=== PATIENT | female | born 1965 | race Caucasian/White ===

== ENCOUNTER → 2019-07-02 11:00 | Outpatient (BNVA) | payer BC, SELFPAY | PROVIDERS: Family Provider Nurse Practitioner; PCP Nurse Practitioner; Visit Provider Nurse Practitioner Family | DX: R05 Cough (principal) | CPT/HCPCS: 87635 ==

== ENCOUNTER 2020-08-15 09:39 | Outpatient (CLI) | payer BC, SELFPAY ==
[2020-08-15] VITALS (8 sets, daily range): BP systolic 119–168; BP diastolic 80–104; PULSE 76–97; RESP 12–24; TEMP 36.9–37.2; O2SAT 94–97; BMI 50.4
--- NOTE | 2020-08-15 10:44 | W.ED.GENADLT ---
HPI - General Adult General: Source: patient Mode of arrival: ambulatory Limitations: no limitations History of Present Illness: HPI narrative: Patient here for Covid infusion. Patient with complaints of low-grade fever today, myalgias, mild headache and occasional cough. Patient diagnosed with Covid on Monday. She states she had the first [place] shot recently but has not had the second shot yet. Onset (ago): day(s) (3) Severity: mild Quality: aching Pain Consistency: constant Relieving factors: none Exacerbating factors: none Associated symptoms: Reports cough, fevers/chills, headache(s) and malaise; Deny chest pain, dyspnea, nausea, rash, palpitations or vomiting Review of Systems Const: Reports: fever(s), body aches and malaise Eyes: Denies: change in vision ENMT: Denies: throat pain Card: Denies: chest pain or palpitations Resp: Reports: non-productive cough; Denies: dyspnea or wheezing GI: Denies: abdominal pain, nausea or vomiting : Denies: flank pain Musc: Denies: neck pain or back pain Skin/Breast: Denies: rash or pruritus Neuro: Reports: headache(s); Denies: numbness in extremities Psych: Denies: anxiety Nabil/Lymph: Denies: enlarged lymph nodes Physical Exam Const: COMMON NORMALS: no acute distress, patient oriented x3, no limitations and well nourished GENERAL APPEARANCE: cooperative HENMT: COMMON NORMALS: normocephalic and atraumatic HEAD & SCALP: normocephalic and atraumatic FACE & SINUS: normal facial exam Eye: COMMON NORMALS: EOMs intact bilaterally Neck/C-Spine: COMMON NORMALS: full ROM, no lymphadenopathy, supple and no meningeal signs GENERAL: Yes normal visual inspection Lymph: LYMPHATIC: no lymphadenopathy noted Chest: COMMONS NORMALS: normal inspection of the chest and normal palpation of entire chest wall CHEST: No Ecchymosis present and No rash Resp: COMMON NORMALS: normal respiratory effort, No retractions, No use of accessory muscles and clear to auscultation bilaterally EFFORT & INSPECTION: No respiratory distress AUSCULTATION: clear to auscultation bilaterally Cardio: COMMON NORMALS: regular rate, regular rhythm and Peripheral pulses 2+ throughout JUGULAR VENOUS DISTENTION: no JVD RATE: regular rate RHYTHM: regular rhythm PERIPHERAL PULSES: Peripheral pulses 2+ throughout GI: COMMON NORMALS: Normal to inspection, nondistended, normoactive bowel sounds present and non-tender : COMMON NORMALS: Yes no CVA tenderness BLADDER/KIDNEY EXAM: Yes no CVA tenderness Back/Pelvis: COMMON NORMALS: no CVA tenderness Extremity: COMMON NORMALS: normal to inspection, full ROM and capillary refill normal Neuro: COMMON NORMALS: patient oriented x3, CN's II-XII intact bilaterally, no focal motor deficits and no sensory deficits noted MENINGEAL SIGNS: Yes no meningeal signs Psych: COMMON NORMALS: mental status grossly normal and Normal thought process present THOUGHT PROCESS: Normal thought process present Skin: COMMON NORMALS: no rashes or lesions noted and no wounds GENERAL SKIN EXAM: no rashes or lesions noted Course Vital Signs: Vital signs: Vital Signs Temperature 98.6 F 08/15/20 09:50 Pulse Rate 97 08/15/20 09:50 Respiratory Rate 20 H 08/15/20 09:50 Blood Pressure 168/104 08/15/20 09:50 Pulse Oximetry 95 08/15/20 09:50 MDM - General Adult MDM Narrative: Medical decision making narrative: Patient is a good candidate for Covid Bam infusion Discharge Plan Discharge Patient Disposition: Home Prescriptions: No Action hydrochlorothiazide 25 mg tablet PO DAILY RF: 0 metformin 500 mg tablet extended release 24 hr PO DAILY RF: 0 mupirocin 2 % ointment TOPICAL PRN (Reason: Rash) RF: 0 albuterol 2 puff inhalation PRN PRN (Reason: Sinus Symptoms) RF: 0 Discharge Orders: Discharge Order (Routine); Ordered 08/15/20 Ordered By: Khadar Chung Referrals: Bev Patel APN [Primary Care Provider] - Activity: Increase activity as tolerated Patient Instructions: Viral Syndrome - Adult Activity Restrictions/Additional Instructions: Return if any problems. Use albuterol inhaler as needed for cough or shortness of breath. Coding Level of Care Code ED Mixing Operator for Mohan Sanchez
--- NOTE | 2020-08-19 13:20 | DCPLANNER ---
clinical data manager had message that patient had received the BAM infusion. clinical data manager called and spoke with patient, she stated that she is doing pretty well. Patient stated that before the infusion that her chest and head congestion had increased, that she was running a high fever, and that she had a constant really bad headache. Patient stated that after the infusion that she has not had a fever, that everyonce in a while, she has a little headache but that it goes away. She stated that she is still weak and get tired easier, but overall she is feeling a lot better. She states that she is planning on going back to work.
== END 2020-08-15 12:51 | disposition home or self-care (01) ==
PROVIDERS: PCP Nurse Practitioner; Visit Provider Nurse Practitioner
DX: U07.1 COVID-19 (principal)
CPT/HCPCS: 96365

== ENCOUNTER 2020-09-29 09:50 | Outpatient (CLI) | payer BC, SELFPAY ==
--- NOTE | 2020-09-29 09:56 | MM_ITS ---
WS: [id number] BILATERAL DIGITAL SCREENING MAMMOGRAPHY WITH CAD CLINICAL INFORMATION: SCREENING HISTORY: Screening mammogram. No current complaints. COMPARISON: June 23, 2014 TECHNIQUE: Bilateral CC and MLO views. FINDINGS: Left breast is smaller compared to the right. This is unchanged from previous. The breasts are composed of heterogeneous fibroglandular density tissue, which can limit the detectio n of small underlying mass lesions. Biopsy clip left breast. A few punctate and lucent centered calci fications. Punctate calcifications upper outer left breast were previously biopsied. New calcificatio ns in this area adjacent to the biopsy cavity. Recommend spot magnification views for further evaluat ion. MM/[place] [id number] IMPRESSION: BI-RADS: 0-Incomplete: Need additional imaging evaluation FOLLOW UP: Need Additional Imaging New punctate calcifications adjacent to the prior biopsy cavity left breast. RECOMMEND LEFT BREAST DIAGNOSTIC MAMMOGRAPHY SPOT MAGNIFICATION VIEWS FOR FURTH ER EVALUATION.
== END 2020-09-29 09:51 | disposition home or self-care (01) ==
LOC: RADSHAW 09:55
PROVIDERS: PCP Nurse Practitioner; Visit Provider Nurse Practitioner
DX: Z12.31 Encounter for screening mammogram for malignant neoplasm of breast (principal)
CPT/HCPCS: 77067

== ENCOUNTER 2020-10-05 07:44 | Outpatient (CLI) | payer BC, SELFPAY ==
--- NOTE | 2020-10-05 07:48 | MM_ITS ---
WS: [id number] LEFT DIGITAL MAMMOGRAPHY WITH CAD CLINICAL INFORMATION: ABNORMAL MAMMOGRAM COMPARISON: September 29, 2020 TECHNIQUE: 3 views of the left breast were obtained. FINDINGS: The left breast is composed of scattered heterogeneous fibroglandular densities. Again seen are the n ew calcifications adjacent to the biopsy cavity. Small clusters of calcification with a punctate appe arance. A few amorphous calcifications. Considering prior biopsy was benign, recommend 6 month follow -up spot magnification views. MM/[place] [id number] IMPRESSION: BI-RADS: 3-Probably Benign FOLLOW UP: 6 Month Follow-up RECOMMEND 6 MONTH FOLLOW-UP LEFT BREAST DIAGNOSTIC MAMMOGRAPHY WITH SPOT MAGNIF ICATION VIEWS.
== END 2020-10-05 07:45 | disposition home or self-care (01) ==
LOC: RADSHAW 07:46
PROVIDERS: PCP Nurse Practitioner; Visit Provider Nurse Practitioner
DX: R92.1 Mammographic calcification found on diagnostic imaging of breast (principal)
CPT/HCPCS: 77065

== ENCOUNTER 2023-05-10 07:39 | Outpatient (CLI) | payer BC, SELFPAY ==
--- NOTE | 2023-05-10 07:47 | CT_ITS ---
WS: [id number] LDCT LUNG CANCER SCREENING TECHNIQUE: Noncontrast CT of the chest with coronal and sagittal reformatted images. CLINICAL INFORMATION: NICOTINE DEPENDENCE COMPARISON: None. DLP: 112.20 mGy.cm DIvol: Mean CTDIvol: 3.00 (mGy) All CT scans at [facility] use at least one of these dose optimization techniques: automat ed exposure control; mA and/or kV adjustment per patient size (includes targeted exams where dose is matched to clinical indication); or iterative reconstruction. FINDINGS: No suspicious pulmonary parenchymal abnormalities. Lungs are well aerated. Normal caliber thoracic aorta. Aortic calcification. Coronary calcification. No mediastinal or hilar lymphadenopathy. Normal GE junction. No axillary lymphadenopathy. Small RIGHT adrenal adenoma. Slight thickening LEFT adrenal gland. Hepatomegaly. A few low-attenuatio n lesions RIGHT hepatic lobe likely hepatic cyst. Moderate thoracic kyphosis. Hypertrophic changes thoracic spine. IMPRESSION: CT/CT lung screening [id number] LUNG-RADS: 1-Negative FOLLOW UP: 12 Month: Continue annual screening with LDCT
--- NOTE | 2023-05-10 08:13 | MM_ITS ---
WS: [id number] BILATERAL SCREENING DIGITAL TOMOSYNTHESIS MAMMOGRAM WITH CAD HISTORY: SCREENING COMPARISON: 10/05/2020, 09/29/2020 and 06/23/2014 Bilateral CC and MLO views with tomosynthesis and synthetic mammography submitted. Computer aided det ection analyzed. Breast composition: There are scattered areas of fibroglandular density. No suspicious masses, microc alcifications or architectural distortion. Numerous benign calcifications in each breast. IMPRESSION: MM/[place] [id number] BI-RADS: 2-Benign FOLLOW UP: 1 Year Follow-up
== END 2023-05-10 07:40 | disposition home or self-care (01) ==
LOC: RAD 07:39
PROVIDERS: PCP Nurse Practitioner; Visit Provider Nurse Practitioner Family
DX: Z12.31 Encounter for screening mammogram for malignant neoplasm of breast (principal); Z12.2 Encounter for screening for malignant neoplasm of respiratory organs; Z87.891 Personal history of nicotine dependence
CPT/HCPCS: 71271; 77063; 77067

== ENCOUNTER 2024-01-04 14:23 | Emergency (ER) | payer BC, SELFPAY ==
--- NOTE | 2024-01-04 14:26 | XR_ITS ---
WS: [id number] Exam: XR chest 1V portable [id number] Date/Time of Exam: 01/04/2024 2:26 PM Reason For Exam: cp Comparison 06/30/2017. Lungs are fully expanded and clear. Normal cardiomediastinal silhouette for technique. No pleural eff usions. Unremarkable bony structures. XR/XR chest 1V portable [id number] IMPRESSION: 1. Negative chest.
--- NOTE | 2024-01-04 14:29 | ECG_ITS ---
[facility] Test Date: 2024-01-04 Pat Name: Dorothy Brower Department: Room: Gender: Female Director Business Systems: : 1965 Requested By: Adriel Dial Order Number: [id number] Banuelos MD: Clayton Garza M.D. Measurements Intervals [place] Rate: 76 P: 29 [place]: 170 QRS: 21 QRSD: 158 T: 8 QT: 396 QTc: 447 Interpretive Statements SINUS RHYTHM INDETERMINATE AXIS RIGHT BUNDLE BRANCH BLOCK [120+ ms QRS DURATION, UPRIGHT V1, 40+ ms S IN I/aVL/V4/V5/V6] No previous ECG available for comparison Electronically Signed On 01-06-2024 10:29:17 WEB CONTENT DIRECTOR by Clayton Garza M.D. [email or web address]
[2024-01-04 14:35] VITALS: BP 176/81; PULSE 82; TEMP 36.7; O2SAT 97; BMI 49.6
[2024-01-04 14:48] LABS: Basophils % 0.3 %; Eosinophils % 0.1 %; Lymphocytes # 1.8 10^3/uL (0.8-4.8); Lymphocytes % 13.4 %; Mean Corpuscular HGB Conc 33.7 g/dL (30-55); Mean Corpuscular Hemoglobin 29.2 pg (27-33); Mean Corpuscular Volume 86.6 fl (85-98); Mean Platelet Volume 9.9 fL (7.4-10.4); Monocytes # 0.4 10^3/uL (0.2-0.9); Monocytes % 2.9 %; Neutrophils # 11.29 10^3/uL (1.8-7.7); Neutrophils % 82.5 %; Nucleated Red Blood Cells % 0 %; Platelet Count 347 10^3/cmm (157-399); Red Blood Count 5.31 10^6/uL (3.85-5.65); Red Cell Distribution Width 12.9 % (12.1-15.1); White Blood Count 13.67 10^3/uL (3.29-11.43)
[2024-01-04 15:18] LABS: Alanine Aminotransferase 15 U/L (0-33); Albumin Level 4.1 g/dL (3.5-5.2); Alkaline Phosphatase 120 U/L (35-105); Anion Gap 17.1 (5-19); Aspartate Amino Transferase 14 U/L (0-32); Blood Urea Nitrogen 11 mg/dL (8-23); Calcium 9.6 mg/dL (8.5-10.5); Carbon Dioxide 24 mmol/L (22-29); Chloride 97 mmol/L (98-107); Creatinine Clr Calc Pharmacy 120.2561; Globulin 3.4 g/dL (1.3-4.6); Glucose 405 mg/dL (65-115); Lipase 26 U/L (13-60); Osmolality Calculated 294 mOsm/kg (285-295); Potassium 4.1 mmol/L (3.5-5.1); Sodium 134 mmol/L (136-145); Total Bilirubin 0.3 mg/dL (0.15-1.2); Total Protein 7.5 g/dL (6.6-8.7)
[2024-01-04 15:24] LABS: Troponin(5th) Baseline 7 ng/L (0-10)
--- NOTE | 2024-01-04 16:04 | W.ED.URI ---
HPI - URI/Sore Throat General: Chief Complaint: Upper Respiratory Infection Stated Complaint: chest pain, lower back spams Time Seen by Provider: 01/04/24 15:44 Source: patient Mode of arrival: ambulatory Limitations: no limitations History of Present Illness: 58yo female presents with friend for evaluation of midsternal chest discomfort that started when she was coughing this morning at around 10 AM as well as low back spasms with coughing when she is sitting against an object such as a chair. Patient reports she was seen at a local clinic 2 days ago where she was diagnosed with bronchitis. She was given an injection of Solu-Medrol and has been on doxycycline, prednisone, Flonase, cetirizine, and albuterol inhaler since. Patient reports that the midsternal chest discomfort started when she was coughing, but it did not resolve. States that the spasms started approximately 30 minutes later only with coughing. She does report she has a history of high blood pressure and diabetes that she does not take her prescribed medications for. She is prescribed hydrochlorothiazide as well as metformin and Ozempic. Patient denies difficulty breathing, shortness of breath, vomiting, diarrhea, any other concerns at this time. Associated symptoms: Reports chest pain (midsternal, onset with cough); Deny chills, fever(s) or vomiting Related Data Home Medications Medication Instructions Recorded Confirmed hydrochlorothiazide 25 mg tablet 25 mg PO DAILY 08/15/20 01/04/24 metformin 500 mg tablet,extended 500 mg PO DAILY 08/15/20 01/04/24 release 24 hr albuterol sulfate 90 mcg/actuation 2 puff inhalation .Q4-6H 01/04/24 01/04/24 aerosol inhaler benzonatate 100 mg capsule 200 mg PO TID 01/04/24 01/04/24 doxycycline hyclate 100 mg capsule 100 mg PO BID 01/04/24 01/04/24 fluconazole 150 mg tablet 150 mg PO Q7D 01/04/24 01/04/24 prednisone 20 mg tablet 20 mg PO BID 01/04/24 01/04/24 Previous Rx's Medication Instructions Recorded tizanidine 2 mg tablet 2 mg PO Q8H PRN muscle spasticity 01/04/24 #20 tabs Allergies Allergy/AdvReac Type Severity Reaction Status Date / Time Sulfa (Sulfonamide Allergy ALGY-Hives Verified 01/04/24 14:38 Antibiotics) Review of Systems Const: Denies: fever(s) or chills Card: Reports: chest pain (midsternal, onset with cough); Denies: palpitations, irregular heart rhythm or syncope Resp: Reports: non-productive cough and chest congestion; Denies: dyspnea, productive cough or wheezing GI: Denies: vomiting Musc: Reports: back pain (low back spasms) Skin/Breast: Denies: erythema Physical Exam Const: COMMON NORMALS: no acute distress and patient oriented x3 GENERAL APPEARANCE: cooperative OTHER: Patient is sitting upright on the side of the stretcher in no acute distress. She is able to give history with no difficulty. She is interactive with exam appropriately. Family is at bedside HENMT: COMMON NORMALS: normocephalic and external ears normal HEAD & SCALP: normocephalic FACE & SINUS: normal facial exam EXTERNAL EAR: Yes external ears normal Eye: GENERAL EYE: appearance normal, both eyes and all related structures Neck/C-Spine: COMMON NORMALS: full ROM Chest: CHEST: Yes Symmetrical chest wall rise Resp: COMMON NORMALS: normal respiratory effort and clear to auscultation bilaterally EFFORT & INSPECTION: Yes able to speak in complete sentences AUSCULTATION: clear to auscultation bilaterally OTHER: Nonproductive cough noted throughout exam Cardio: COMMON NORMALS: regular rate and regular rhythm RATE: regular rate RHYTHM: regular rhythm : COMMON NORMALS: No no CVA tenderness BLADDER/KIDNEY EXAM: No no CVA tenderness Back/Pelvis: COMMON NORMALS: negative for no CVA tenderness LUMBAR SPINE/LOWER BACK: Yes normal to inspection and No lumbar spinal tenderness Extremity: COMMON NORMALS: full ROM Neuro: COMMON NORMALS: patient oriented x3 Psych: COMMON NORMALS: cooperative Course Vital Signs: Vital signs: Vital Signs Temperature 98.0 F 01/04/24 14:35 Pulse Rate 69 01/04/24 17:00 Blood Pressure 170/94 01/04/24 17:00 Pulse Oximetry 94 01/04/24 17:00 Oxygen Delivery Me thod Room Air 01/04/24 17:00 MDM - URI/Sore Throat Medical Decision Making 58yo female with a known history of HTN, DM, and currently beign treated for bronchitis with Solumedrol (2 days ago), prednisone, doxycycline, fluticasone, cetirizine, and albuterol inhaler. Patient did have an onset of substernal chest pain while she was coughing this morning at around 10:00. States that it did not resolve when her coughing stopped. She then started having low back spasms with coughing starting at 1030 this morning. She did contact her primary care who recommended she come to the emergency department for further evaluation. Patient does report that she is not compliant with her daily medications for hypertension (hydrochlorothiazide) as well as for her diabetes (metformin and Ozempic). Patient denies difficulty breathing, shortness of breath, vomiting, abdominal pain, any other concern at this time. Patient is nontoxic in appearance. Vital signs are stable. Differential diagnoses include but are not limited to: Upper respiratory infection, bronchitis, acute PA, pleurisy, muscle spasms Labs, imaging, and EKG obtained while awaiting room placement. EKG does show sinus rhythm with a right bundle branch block, no previous for comparison. No acute abnormalities noted on the chest x-ray. Mild leukocytosis with a white blood cell count of 13.67, this may be elevated related to her known infection but also her recent steroid use. Sodium is mildly decreased at 134, but corrected sodium for hyperglycemia is noted to be 141. Glucose is noted to be 405, likely related to patient's current use of steroids and noncompliance with medications. Baseline troponin is noted to be 7, 2-hour troponin is noted to be 6 with no change in 2h EKG (SR with RBBB, rate 66). Discussed these findings with patient and family. Advised that we would begin a mild muscle relaxer for the back spasms. Reiterated to patient the importance of taking her prescribed medications. Recommend she follow-up with primary care within the next week for her blood pressure, hyperglycemia (likely worsened by steroid use), and for an ER follow-up. Advised return to the emergency department with any rapid worsening symptoms, difficulty breathing, shortness of breath, persistent chest pain, and as needed. Patient states understanding and has no further questions or concerns at this time. Medical Records I reviewed the patient's medical records. Lab Data I reviewed the patient's lab results. 01/04/24 14:40 01/04/24 14:40 Radiology Impressions Chest X-Ray 01/04/24 14:26 IMPRESSION: 1. Negative chest. Laboratory Results WBC 13.67 10^3/uL (3.29-11.43) H 01/04/24 14:40 RBC 5.31 10^6/uL (3.85-5.65) 01/04/24 14:40 Hgb 15.50 g/dL (11.27-16.99) 01/04/24 14:40 Hct 46.0 % (36-47) 01/04/24 14:40 MCV 86.6 fl (85-98) 01/04/24 14:40 MCH 29.2 pg (27-33) 01/04/24 14:40 MCHC 33.7 g/dL (30-55) 01/04/24 14:40 RDW 12.9 % (12.1-15.1) 01/04/24 14:40 Plt Count 347 10^3/cmm (157-399) 01/04/24 14:40 MPV 9.9 fL (7.4-10.4) 01/04/24 14:40 Neut % (Auto) 82.5 % 01/04/24 14:40 Lymph % (Auto) 13.4 % 01/04/24 14:40 [place] % (Auto) 2.9 % 01/04/24 14:40 Eos % (Auto) 0.1 % 01/04/24 14:40 Baso % (Auto) 0.3 % 01/04/24 14:40 Neut # (Auto) 11.29 10^3/uL (1.8-7.7) H 01/04/24 14:40 Lymph # (Auto) 1.8 10^3/uL (0.8-4.8) 01/04/24 14:40 [place] # (Auto) 0.4 10^3/uL (0.2-0.9) 01/04/24 14:40 Eos # (Auto) 0.0 10^3/uL (0.0-0.8) 01/04/24 14:40 Baso # (Auto) 0.0 10^3/uL (0.0-0.1) 01/04/24 14:40 Nucleated RBC % (auto) 0 % 01/04/24 14:40 Nucleated RBCs # 0.0 /100WBC 01/04/24 14:40 Sodium 134 mmol/L (136-145) L 01/04/24 14:40 Potassium 4.1 mmol/L (3.5-5.1) 01/04/24 14:40 Chloride 97 mmol/L (98-107) L 01/04/24 14:40 Carbon Dioxide 24 mmol/L (22-29) 01/04/24 14:40 Anion Gap 17.1 (5-19) 01/04/24 14:40 BUN 11 mg/dL (8-23) 01/04/24 14:40 Creatinine 0.6 mg/dL (0.5-0.9) 01/04/24 14:40 GFR Calculation 102.0 mL/min (90-130) 01/04/24 14:40 Glucose 405 mg/dL (65-115) H 01/04/24 14:40 Calculated Osmolality 294 mOsm/kg (285-295) 01/04/24 14:40 Calcium 9.6 mg/dL (8.5-10.5) 01/04/24 14:40 Total Bilirubin 0.3 mg/dL (0.15-1.2) 01/04/24 14:40 AST 14 U/L (0-32) 01/04/24 14:40 ALT 15 U/L (0-33) 01/04/24 14:40 Alkaline Phosphatase 120 U/L (35-105) H 01/04/24 14:40 Troponin T Baseline 7 ng/L (0-10) 01/04/24 14:40 Troponin T 120 Minute 6.00 ng/L (0-10) 01/04/24 16:32 Delta Troponin T -1.00 ABS# (0-10) L 01/04/24 16:32 Total Protein 7.5 g/dL (6.6-8.7) 01/04/24 14:40 Albumin 4.1 g/dL (3.5-5.2) 01/04/24 14:40 Globulin 3.4 g/dL (1.3-4.6) 01/04/24 14:40 Lipase 26 U/L (13-60) 01/04/24 14:40 All radiology interpretation(s) finalized by discharge Discharge Plan Discharge Patient Disposition: Home Clinical Impression: Bronchitis, Muscle spasm of back Condition: Stable Prescriptions: New tizanidine 2 mg tablet 2 mg PO Q8H PRN (Reason: muscle spasticity) Qty: 20 0RF No Action hydrochlorothiazide 25 mg tablet 25 mg PO DAILY metformin 500 mg tablet extended release 24 hr 500 mg PO DAILY doxycycline hyclate 100 mg capsule 100 mg PO BID fluconazole 150 mg tablet 150 mg PO Q7D prednisone 20 mg tablet 20 mg PO BID benzonatate 100 mg capsule 200 mg PO TID albuterol sulfate 90 mcg/actuation HFA aerosol inhaler 2 puff INHALATION .Q4-6H Discharge Orders: Discharge ED (Routine); Ordered 01/04/24 Ordered By: Alex Lawson Referrals: Bev Patel APN [Primary Care Provider] - Discharge Diet: Usual diet Discharge Activity: Resume usual activity Patient Instructions: Muscle Spasm (ED), Pain Management Activity Restrictions/Additional Instructions: Your heart labs were noted to be in the normal range. The chest discomfort is not likely to be related to heart damage at this time Your elevated glucose is likely related to your use of steroids for your respiratory infection. Please monitor your glucose closely. Tizanidine has been sent to your pharmacy for the muscle spasms. Please do not drive or operate heavy machinery while taking this medication Follow-up with primary care within the next week for recheck of your blood pressure, glucose, and ER follow-up. Follow-up sooner if needed Return to the emergency department as any rapid worsening symptoms, difficulty breathing, shortness of breath, sustained chest pain, and as needed. Stand Alone Forms: Work/School Release Coding Level of Care Code ED Welfare Eligibility Worker for Mohan Sanchez
[2024-01-04 16:16] VITALS: BP 170/100
[2024-01-04 16:30] VITALS: BP 178/98; PULSE 71; O2SAT 95
--- NOTE | 2024-01-04 16:44 | ECG_ITS ---
[id number] [facility] Pat Name: Dorothy Brower Department: Room: Gender: Female Special Client Bus Driver: : 1965 Requested By: Adriel Dial Order Number: [id number] Banuelos MD: Clayton Garza M.D. Measurements Intervals [place] Rate: 66 P: 29 [place]: 164 QRS: 21 QRSD: 159 T: 7 QT: 441 QTc: 463 Interpretive Statements SINUS RHYTHM RIGHT BUNDLE BRANCH BLOCK [120+ ms QRS DURATION, UPRIGHT V1, 40+ ms S IN I/aVL/V4/V5/V6] Compared to ECG 01/04/2024 14:29:30 Indeterminate axis no longer present Electronically Signed On 01-06-2024 10:38:01 WOOD BARREL RECONDITIONER by Clayton Garza M.D. [id number]
[2024-01-04 17:00] VITALS: BP 170/94; PULSE 69; O2SAT 94
[2024-01-04] MEDS: tizanidine 4 mg Tablet PO (17:49)
[2024-01-04 17:52] VITALS: BP 176/97; PULSE 70; O2SAT 94
== END 2024-01-04 17:53 | disposition home or self-care (01) ==
PROVIDERS: Emergency Medicine; Emergency Provider Nurse Practitioner; PCP Nurse Practitioner
DX: J40 Bronchitis, not specified as acute or chronic (principal); M62.830 Muscle spasm of back; Z79.84 Long term (current) use of oral hypoglycemic drugs
CPT/HCPCS: 71045; 80053; 83690; 84484; 85025; 93005; 99285

== ENCOUNTER 2024-11-27 12:58 | Outpatient (CLI) | payer BC, SELFPAY ==
--- NOTE | 2024-11-27 13:07 | CT_ITS ---
WS: [id number] LDCT LUNG CANCER SCREENING HISTORY: ANNUAL SCREENING TECHNIQUE: Axial imaging performed from the apices to 1 cm below the costophrenic angles. Coronal and sagittal reformats are submitted with axial MIP series. All CT scans at [facility] use at least one of these dose optimization techniques: automated exposure control; mA and/or kV adjustment per patient size (includes targeted exams where dose is matched to clinical indication); or iterative reconstruction. DLP: 101.82 mGy.cm DIvol: Mean CTDIvol: 2.70 (mGy) COMPARISON: 05/10/2023 Diagnostic quality: Satisfactory Lungs: Lungs are well aerated. No pulmonary nodule or mass. No endobronchial lesions. Thin bandlike atelectasis at the lingula. Heart: Normal size heart with no pericardial effusion.. Other findings: Mildly enlarged pulmonary artery. Mild atherosclerosis aorta. Mild LEFT thyromegaly extends substernal. No adenopathy. Bilateral adrenal gland low-attenuation nodules and adrenal thickening. Most likely from benign adenomas. No change in the small scattered hypodensities in the liver. CT/CT lung screening [id number] IMPRESSION: LUNG-RADS: 2-Benign Appearance or Behavior FOLLOW UP: 12 Month: Continue annual screening with LDCT OTHER FINDINGS (S MODIFIER): None.
== END 2024-11-27 12:59 | disposition home or self-care (01) ==
LOC: RAD 13:01
PROVIDERS: PCP Nurse Practitioner Family; Visit Provider Nurse Practitioner Family
DX: Z12.2 Encounter for screening for malignant neoplasm of respiratory organs (principal); Z87.891 Personal history of nicotine dependence; J98.11 Atelectasis; R91.8 Other nonspecific abnormal finding of lung field
CPT/HCPCS: 71271